=== PATIENT | male | born 1995 | race African-American/Black ===

== ENCOUNTER 2017-12-30 20:39 | Emergency (ER) | payer SELFPAY ==
[~2017-12-30] VITALS: Ht 190.5 cm; Wt 94.9 kg
[2017-12-30 20:41] VITALS: BP 155/78
== END 2017-12-30 21:14 | disposition home or self-care (01) ==
LOC: ED 21:08
DX: J02.0 Streptococcal pharyngitis (principal)
CPT/HCPCS: 87081; 87880; 99284